=== PATIENT | female | born 1990 | race American Indian/Alaskan Native ===

== ENCOUNTER 2018-06-25 14:46 | Emergency (ER) | payer SELFPAY ==
--- NOTE | 2018-06-25 18:07 | Emergency Department Report ---
HPI - General Chief Complaint: Medical Clearance Time Seen by Provider: 06/25/18 17:06 - [facility] HPI: Room 16 The patient is a 28-year-old female presenting with a chief complaint of psychosis. The patient has a history of "anxiety." Reportedly has not taken meds for weeks. Per police, the patient wandered to the residence of an unknown person, took her car keys and made entry into a vehicle that was not hers. Patient denies suicidal or homicidal ideation. Patient denies auditory or visual hallucinations. Patient has a flat affect Location: Mental state Duration: [See above] Quality: Psychotic Severity: [See above] Modifying factors: [see above] Context: [see above] Mode of transportation: [not driving] ED Past Medical Hx - Past Medical History Additional medical history: ANXIETY - Surgical History Past Surgical History?: No - Family History Family history: no significant - Social History Smoking Status: Never Smoker Substance Use Type: None (denies illicit drug use), Alcohol (occasional) - Medications Home Medications: Home Medications Medication Instructions Recorded Confirmed Last Taken Type Unobtainable 06/25/18 06/25/18 Unknown History ED Review of Systems ROS: Stated complaint: 1013 POSS Other details as noted in HPI Constitutional: denies: fever Eyes: denies: eye pain ENT: denies: throat pain Respiratory: no symptoms reported Cardiovascular: denies: chest pain Endocrine: no symptoms reported Gastrointestinal: denies: nausea, vomiting Genitourinary: denies: dysuria Musculoskeletal: denies: back pain Neurological: denies: headache Psychiatric: denies: auditory hallucinations, visual hallucinations, homicidal thoughts, suicidal thoughts Physical Exam - Physical Exam Vital Signs: Vital Signs 06/25/18 15:16 Temperature 98.4 F Pulse Rate 64 Respiratory 18 Rate Blood Pressure 119/72 O2 Sat by Pulse 100 Oximetry Physical Exam: GENERAL: The patient is well-developed well-nourished []. [] HEENT: Normocephalic. Atraumatic. Extraocular motions are intact. Patient has moist mucous membranes. NECK: Supple. Trachea midline CHEST/LUNGS: There is no respiratory distress noted. HEART/CARDIOVASCULAR: Regular. There is no tachycardia. ABDOMEN: There is no abdominal distention. SKIN: There is no diaphoresis. NEURO: The patient is awake, alert, and oriented 4. The patient is not cooperative with exam. The patient has normal speech MUSCULOSKELETAL:There is no evidence of acute injury. ED Course Vital Signs 06/25/18 15:16 Temperature 98.4 F Pulse Rate 64 Respiratory 18 Rate Blood Pressure 119/72 O2 Sat by Pulse 100 Oximetry ED Medical Decision Making - Lab Data Result diagrams: 06/25/18 19:30 06/25/18 19:30 Patient currently refusing labs Laboratory Tests 06/25/18 06/25/18 18:25 18:25 Urine Color Yellow Urine Turbidity Slightly-cloudy Urine pH 5.0 Ur Specific [place] 1.024 Urine Protein <15 mg/dl Urine Glucose (UA) Neg Urine Ketones 20 Urine Blood Neg Urine Nitrite Neg Urine Bilirubin Neg Urine Urobilinogen 2.0 Ur Leukocyte Esterase Lg Urine WBC (Auto) 12.0 H Urine RBC (Auto) 3.0 U Epithel Cells (Auto) 4.0 Urine Bacteria (Auto) 1+ Urine Mucus 1+ Urine Opiates Screen Presumptive negative Urine Methadone Screen Presumptive negative Ur Barbiturates Screen Presumptive negative Ur Phencyclidine Scrn Presumptive negative Ur Amphetamines Screen Presumptive negative U Benzodiazepines Scrn Presumptive negative Urine Cocaine Screen Presumptive negative U Marijuana (THC) Screen Presumptive negative Drugs of Abuse Note Disclamer Update Laboratory Tests 06/25/18 06/25/18 06/25/18 18:25 18:25 19:30 WBC RBC Hgb Hct MCV MCH MCHC RDW Plt Count Lymph % (Auto) [place] % (Auto) Eos % (Auto) Baso % (Auto) Lymph # [place] # Eos # Baso # Seg Neutrophils % Seg Neutrophils # Sodium Potassium Chloride Carbon Dioxide Anion Gap BUN Creatinine Estimated GFR BUN/Creatinine Ratio Glucose Calcium HCG, Qual Urine Color Yellow Urine Turbidity Slightly-cloudy Urine pH 5.0 Ur Specific [place] 1.024 Urine Protein <15 mg/dl Urine Glucose (UA) Neg Urine Ketones 20 Urine Blood Neg Urine Nitrite Neg Urine Bilirubin Neg Urine Urobilinogen 2.0 Ur Leukocyte Esterase Lg Urine WBC (Auto) 12.0 H Urine RBC (Auto) 3.0 U Epithel Cells (Auto) 4.0 Urine Bacteria (Auto) 1+ Urine Mucus 1+ Salicylates < 0.3 L Urine Opiates Screen Presumptive negative Urine Methadone Screen Presumptive negative Acetaminophen Ur Barbiturates Screen Presumptive negative Ur Phencyclidine Scrn Presumptive negative Ur Amphetamines Screen Presumptive negative U Benzodiazepines Scrn Presumptive negative Urine Cocaine Screen Presumptive negative U Marijuana (THC) Screen Presumptive negative Drugs of Abuse Note Disclamer Plasma/Serum Alcohol 06/25/18 06/25/18 06/25/18 19:30 19:30 19:30 WBC RBC Hgb Hct MCV MCH MCHC RDW Plt Count Lymph % (Auto) [place] % (Auto) Eos % (Auto) Baso % (Auto) Lymph # [place] # Eos # Baso # Seg Neutrophils % Seg Neutrophils # Sodium 138 Potassium 4.7 Chloride 97.7 L Carbon Dioxide 24 Anion Gap 21 BUN 10 Creatinine 0.7 Estimated GFR > 60 BUN/Creatinine Ratio 14 Glucose 111 H Calcium 10.1 HCG, Qual Urine Color Urine Turbidity Urine pH Ur Specific [place] Urine Protein Urine Glucose (UA) Urine Ketones Urine Blood Urine Nitrite Urine Bilirubin Urine Urobilinogen Ur Leukocyte Esterase Urine WBC (Auto) Urine RBC (Auto) U Epithel Cells (Auto) Urine Bacteria (Auto) Urine Mucus Salicylates Urine Opiates Screen Urine Methadone Screen Acetaminophen < 5.0 L Ur Barbiturates Screen Ur Phencyclidine Scrn Ur Amphetamines Screen U Benzodiazepines Scrn Urine Cocaine Screen U Marijuana (THC) Screen Drugs of Abuse Note Plasma/Serum Alcohol < 0.01 06/25/18 06/25/18 19:30 19:30 WBC 10.2 RBC 4.26 Hgb 14.4 H Hct 44.1 H MCV 103 H MCH 34 H MCHC 33 RDW 13.2 Plt Count 354 Lymph % (Auto) 30.2 [place] % (Auto) 5.6 Eos % (Auto) 1.2 Baso % (Auto) 1.2 Lymph # 3.1 [place] # 0.6 Eos # 0.1 Baso # 0.1 Seg Neutrophils % 61.8 Seg Neutrophils # 6.3 Sodium Potassium Chloride Carbon Dioxide Anion Gap BUN Creatinine Estimated GFR BUN/Creatinine Ratio Glucose Calcium HCG, Qual Negative Urine Color Urine Turbidity Urine pH Ur Specific [place] Urine Protein Urine Glucose (UA) Urine Ketones Urine Blood Urine Nitrite Urine Bilirubin Urine Urobilinogen Ur Leukocyte Esterase Urine WBC (Auto) Urine RBC (Auto) U Epithel Cells (Auto) Urine Bacteria (Auto) Urine Mucus Salicylates Urine Opiates Screen Urine Methadone Screen Acetaminophen Ur Barbiturates Screen Ur Phencyclidine Scrn Ur Amphetamines Screen U Benzodiazepines Scrn Urine Cocaine Screen U Marijuana (THC) Screen Drugs of Abuse Note Plasma/Serum Alcohol - Differential Diagnosis psychosis Critical care attestation.: If time is entered above; I have spent that time in minutes in the direct care of this critically ill patient, excluding procedure time. ED Disposition Clinical Impression: Psychosis, UTI (urinary tract infection) Disposition: DC/TX-65 PSY HOSP/PSY UNIT Is pt being admited?: No Does the pt Need Aspirin: No Condition: Fair Referrals: PRIMARY CARE, [Primary Care Provider] - 3-5 Days Time of Disposition: 19:32 (awaiting acceptance)
[2018-06-25 18:46] LABS: Bacteria,Urine 1+ /HPF (Negative); Bilirubin,Urine NEG (Negative); Blood,Urine NEG (Negative); Color,Urine Yellow (Yellow); Mucus,Urine 1+ /HPF; Protein,Urine <15 mg/dL mg/dL (Negative)
[2018-06-25 19:07] LABS: Amphetamine Screen,Urine PRESUMPTIVE NEGATIVE; Benzodiazepines Screen,Urine PRESUMPTIVE NEGATIVE; Cannabinoid Screen,Urine PRESUMPTIVE NEGATIVE; Cocaine Screen,Urine PRESUMPTIVE NEGATIVE; Methadone Screen,Urine PRESUMPTIVE NEGATIVE; Opiate Screen,Urine PRESUMPTIVE NEGATIVE
[2018-06-25] MEDS ORDERED: HALDOL IM PRN (19:30)
[2018-06-25] MEDS ORDERED: ATIVAN IM PRN (19:30)
[2018-06-25] MEDS ORDERED: BENADRYL IM PRN (19:30)
[2018-06-25 19:52] LABS: Basophils # (Auto) 0.1 K/mm3 (0.0-0.1); Basophils % (Auto) 1.2 % (0.0-1.8); Eosinophils # (Auto) 0.1 K/mm3 (0.0-0.4); Eosinophils % (Auto) 1.2 % (0.0-4.3); Hematocrit 44.1 % (30.3-42.9); Hemoglobin 14.4 gm/dl (10.1-14.3); Lymphocytes # (Auto) 3.1 K/mm3 (1.2-5.4); Lymphocytes % (Auto) 30.2 % (13.4-35.0); Mean Corpuscular HGB Conc 33 % (30-34); Mean Corpuscular Hemoglobin 34 pg (28-32); Mean Corpuscular Volume 103 fl (79-97); Monocytes # (Auto) 0.6 K/mm3 (0.0-0.8); Monocytes % (Auto) 5.6 % (0.0-7.3); Platelet Count 354 K/mm3 (140-440); Red Blood Count 4.26 M/mm3 (3.65-5.03); Red Cell Distribution Width 13.2 % (13.2-15.2)
[2018-06-25 19:53] LABS: BUN/Creatinine Ratio 14; Blood Urea Nitrogen 10 mg/dL (7-17); Calcium 10.1 mg/dL (8.4-10.2); Hemolysis Index 22
[2018-06-25] MEDS: BACTRIM DS PO SCH (22:31)
--- NOTE | 2018-06-26 10:49 | Consultation ---
History of Present Illness - Reason for Consult Consult date: 06/26/18 Reason for consult: Mental Health Evaluation Requesting physician: WOLF BURGESS - Chief Complaint Chief complaint: "The patient refuse to cooperate" - History of Present Psychiatric Illness 28-year-old AA female presented to the ER for acute psychosis. The patient refused to cooperate during the assessment. She was asked several questions and she stated, "I refuse to answer." I the provider will attempt to assess the patient in 24 hours. Medications and Allergies Allergies Allergy/AdvReac Type Severity Reaction Status Date / Time Penicillins Allergy Hives Verified 06/25/18 15:15 Home Medications Medication Instructions Recorded Confirmed Last Taken Type Unobtainable 06/25/18 06/25/18 Unknown History Active Meds: Active Medications Diphenhydramine HCl (Benadryl) 50 mg IM Q6H PRN PRN Reason: Agitation Haloperidol Lactate (Haldol) 10 mg IM Q8H PRN PRN Reason: Agitation Lorazepam (Ativan) 2 mg IM Q8H PRN PRN Reason: Agitation Trimethoprim/Sulfamethoxazole (Bactrim Ds) 1 each PO Q12HR PAMELA Stop: 06/28/18 22:00 Last Admin: 06/25/18 22:31 Dose: 1 each Documented by: Past psychiatric history - Past Medical History Past Medical History: other (Unable to obtain) Past Surgical History: Other (Unable to obtain) - past Psychiatric treatment and history psychiatric treatment history: Unable to obtain and psy hx and a fam psy hx. - Social History Social history: other (Unabel to obtain) Mental Status Exam - Vital signs Last Vital Signs Temp 98.2 F 06/26/18 00:30 Pulse 79 06/26/18 00:30 Resp 18 06/26/18 00:30 BP 124/71 06/26/18 00:30 Pulse Ox 100 06/26/18 00:30 - Exam Narrative exam: Unable to complete the MSE because the patient refused to cooperate. Results Result Diagrams: 06/25/18 19:30 06/25/18 19:30 Abnormal lab results 06/25/18 06/25/18 06/25/18 Range/Units 18:25 19:30 19:30 Hgb (10.1-14.3) gm/dl Hct (30.3-42.9) % MCV (79-97) fl MCH (28-32) pg Chloride (98-107) mmol/L Glucose (65-100) mg/dL Urine WBC (Auto) 12.0 H (0.0-6.0) /HPF Salicylates < 0.3 L (2.8-20.0) mg/dL Acetaminophen < 5.0 L (10.0-30.0) ug/mL 06/25/18 06/25/18 Range/Units 19:30 19:30 Hgb 14.4 H (10.1-14.3) gm/dl Hct 44.1 H (30.3-42.9) % MCV 103 H (79-97) fl MCH 34 H (28-32) pg Chloride 97.7 L (98-107) mmol/L Glucose 111 H (65-100) mg/dL Urine WBC (Auto) (0.0-6.0) /HPF Salicylates (2.8-20.0) mg/dL Acetaminophen (10.0-30.0) ug/mL All other labs normal. Assessment and Plan Assessment and plan: Impression: The patient refused to cooperate during the assessment. Recommendation/Plan: Continue 1013. Attempt to reassess the patient in 24 hours. Dispo: The patient was referred to inpatient psy services. Staffed with Dr Lopez.
[2018-06-26] MEDS: BACTRIM DS PO SCH ×2 (11:25→23:18)
--- NOTE | 2018-06-26 23:04 | Emergency Department Report ---
Blank Doc - Documentation Documentation: Patient's 28-year-old female that is here for psychiatric evaluation and medical clearance. Patient is medically cleared however due to the fact the patient had white blood cells on her urine psychiatric initially asked for further explanation. The patient is asymptomatic. Patient denies dysuria and any type of pain. Patient denies physical complaints. Patient's UA findings are consistent with asymptomatic pyuria and does not require any further treatment. Patient will remain on a 1013. Patient is still medically cleared
[2018-06-27] MEDS: BACTRIM DS PO SCH (11:42)
--- NOTE | 2018-06-27 13:14 | Progress Note ---
Subjective - Reason for Consult Consult date: 06/27/18 Reason for consult: Psychatry Follow-up - Chief Complaint Chief complaint: "The patient refuse to cooperate" 28-year-old AA female presented to the ER for acute psychosis. The patient continue to refus to cooperate during the assessment. Mental Status Exam - Vital signs Last Vital Signs Temp 98.4 F 06/27/18 01:05 Pulse 69 06/27/18 01:05 Resp 16 06/27/18 01:05 BP 98/58 06/27/18 01:05 Pulse Ox 99 06/27/18 01:05 - Exam Narrative exam: Unable to complete the MSE because the patient refused to cooperate. Assessment and Plan Impression: The patient continue to refuse to cooperate during the assessment. Recommendation/Plan: Continue 1013. Dispo: The patient was accepted at [facility] for inpatient psy services pending transport time. Staffed with Dr Lopez.
[2018-06-27 14:59] VITALS: BP 107/65
== END 2018-06-27 15:00 ==
LOC: ED 14:46 → EEVIPCON 14:46 → ED 06-27 15:00
DX: F29 Unspecified psychosis not due to a substance or known physiological condition (principal); N39.0 Urinary tract infection, site not specified; F41.9 Anxiety disorder, unspecified; Z88.0 Allergy status to penicillin
CPT/HCPCS: 36415; 80048; 80307; 81001; 84703; 85025; 99285; G0480; 80320